=== PATIENT | male | born 1995 | race Caucasian/White ===

== ENCOUNTER 2023-11-11 10:29 | Inpatient (IN) | payer OTHER ==
[~2023-11-11] VITALS: Ht 177.8 cm; Wt 81.6 kg
[2023-11-11 10:44] VITALS: BP 143/89; PULSE 126; RESP 16; TEMP 101.2; O2SAT 98
[2023-11-11] MEDS: ACETAMINOPHEN EXTRA STRENGTH 500 MG TAB PO ONE (10:54)
[2023-11-11] MEDS ORDERED: PIPERACILLIN/TAZOBACTAM 3.375 GM VIAL IV ONE (11:22)
[2023-11-11] MEDS: PIPERACILLIN/TAZOBACTAM 3.375 GM in DEXT 5% MINI-BAG PLUS 50 ML IV ONE (11:30)
[2023-11-11] MEDS: NACL 0.9% 2,000 ML IV SCH (11:31)
[2023-11-11 11:39] LABS: HEMATOCRIT 40.3 % (36-52); HEMOGLOBIN 13.8 g/dL (12.0-18.0); MEAN CORPUSCULAR HEMOGLOBIN 29 pg (27-31); MEAN CORPUSCULAR HGB CONC 34 g/dL (33-37); MEAN CORPUSCULAR VOLUME 85.5 fL (80-94); PLATELET COUNT (AUTO) 268 K/uL (140-450); RED BLOOD CELL COUNT(AUTO) 4.71 MIL/uL (4.20-6.10)
[2023-11-11 11:52] LABS: WHITE BLOOD COUNT (AUTO) 25.9 K/uL (4.8-10.8)
[2023-11-11 12:08] LABS: INR 1.07 (0.8-1.2); PROTHROMBIN TIME 11.2 secs (10.8-13.4)
[2023-11-11 12:10] LABS: LACTIC ACID 1.7 mmol/L (0.4-2.0)
[2023-11-11 12:14] LABS: ANION GAP 10.4 (8-16); CALCIUM 8.7 mg/dL (8.5-10.1); CARBON DIOXIDE 29.6 mmol/L (21-32); CREATININE 0.7 mg/dL (0.6-1.3)
[2023-11-11 12:16] LABS: ALANINE AMINOTRANSFERASE 27 U/L (12-78); ALBUMIN 3.3 g/dL (3.4-5.0); ALKALINE PHOSPHATASE 77 U/L (50-136); ASPARTATE AMINOTRANSFERASE 24 U/L (15-37); BILIRUBIN,DIRECT 0.1 mg/dL (0.0-0.3); CREATINE KINASE, TOTAL 164 U/L (39-308); TOTAL BILIRUBIN 0.4 mg/dL (0.0-1.0); TOTAL PROTEIN, SERUM 8.2 g/dL (6.4-8.2)
[2023-11-11 12:18] LABS: BASOPHILS % (MANUAL) 0 % (0-2); BLASTS, MANUAL % 0 % (0-0); EOSINOPHILS % (MANUAL) 0 % (0-4); LYMPHOCYTES % (MANUAL) 3 % (20-46); METAMYELOCYTES % 0 % (0-0); MONOCYTES % (MANUAL) 6 % (5-12); MYELOCYTES % 0 % (0-0); OTHER CELLS,MANUAL % 0 (0-0); PLASMA CELLS 0; PLATELET ESTIMATE ADEQUATE; PROMYELOCYTES % 0 % (0-0); SMUDGE CELLS 0
[2023-11-11 12:35] LABS: APPEARANCE,URINE CLEAR (CLEAR); BILIRUBIN,URINE NEGATIVE (NEGATIVE); BLOOD, URINE NEGATIVE (NEGATIVE); COLOR,URINE YELLOW (YELLOW); LEUKOCYTE ESTERASE ,URINE NEGATIVE (NEGATIVE); NITRITE, URINE NEGATIVE (NEGATIVE); PROTEIN,URINE 1+ (NEGATIVE); UGLUCOSE NEGATIVE (NEGATIVE)
[2023-11-11 12:38] LABS: BACTERIA,URINE 0-2 /HPF (None Seen); MUCUS,URINE 1+ /LPF (None Seen); RBC,URINE 0-5 /HPF (0-5); SQUAMOUS EPITHELIAL CELL,UR 0-3 (FEW) /LPF (0-3 (FEW)); WBC,URINE 0 /HPF (0-5)
[2023-11-11] MEDS ORDERED: MAGNESIUM OXIDE 400 MG TAB PO PRN (14:00)
[2023-11-11] MEDS ORDERED: KCL 20 MEQ IN 100 mL PREMIX 200 ML IV PRN (14:00)
[2023-11-11] MEDS ORDERED: MORPHINE SULFATE 4 MG/ML SYR IVP PRN (14:00)
[2023-11-11] MEDS ORDERED: VANCOMYCIN PER PHARMACY MC PRN (14:00)
[2023-11-11] MEDS: NACL 0.9% 1,000 ML IV SCH (14:00)
[2023-11-11] MEDS ORDERED: ONDANSETRON 4 MG/2 ML VIAL IVP PRN (14:00)
[2023-11-11] MEDS ORDERED: HYDROcodone/APAP 5/325 MG 1 TAB TAB PO PRN (14:00)
[2023-11-11] MEDS ORDERED: POTASSIUM CHLORIDE 10 MEQ TABER PO PRN (14:00)
[2023-11-11] MEDS ORDERED: MAG SULF 2000 MG/WATER PREMIX 50 ML IV PRN (14:00)
[2023-11-11] MEDS ORDERED: ENOXAPARIN 40 MG/0.4 ML SYR SUBQ ONE (15:22)
[2023-11-11] MEDS ORDERED: cefTRIAXone 1,000 MG VIAL ONE (15:22)
[2023-11-11] MEDS: ENOXAPARIN 40 MG/0.4 ML SYR SUBQ SCH (15:38)
[2023-11-11] MEDS: VANCOMYCIN 1.25GM PREMIX 250 ML IV SCH (15:59)
[2023-11-11 16:25] LABS: FLU A ANTIGEN negative (NEGATIVE); FLU B ANTIGEN negative (NEGATIVE)
[2023-11-11] MEDS: ACETAMINOPHEN 325 MG TAB PO PRN (18:06)
[2023-11-11 19:07] VITALS: BP 118/70; PULSE 110; RESP 16; TEMP 99.5; O2SAT 98
== END 2023-11-11 19:50 | disposition left against medical advice (07) | DRG 344 ==
LOC: MED 10:29 → MMU 14:00 → MTU 18:11
PROVIDERS: ADMIT Hospitalist; ATTEND Hospitalist
DX: M86.8X6 Other osteomyelitis, lower leg (principal); E44.0 Moderate protein-calorie malnutrition; E87.1 Hypo-osmolality and hyponatremia; S81.801A Unspecified open wound, right lower leg, initial encounter; D72.829 Elevated white blood cell count, unspecified; R00.0 Tachycardia, unspecified; X58.XXXA Exposure to other specified factors, initial encounter; Z20.822 Contact with and (suspected) exposure to COVID-19; Z68.25 Body mass index [BMI] 25.0-25.9, adult
CPT/HCPCS: 36415; 71045; 73590; 80048; 80076; 81001; 82550; 83605; 83880; 84484; 85025; 85610; 85730; 87040; 93005; 96374; 99291; J0696; J1650; J2543; J3372; Q0092

== ENCOUNTER 2023-11-16 18:12 | Inpatient (IN) | payer OTHER ==
[~2023-11-16] VITALS: Ht 177.8 cm; Wt 81.6 kg
[2023-11-16 18:43] VITALS: BP 126/84; PULSE 111; RESP 20; TEMP 98; O2SAT 99
[2023-11-16 19:46] LABS: BASOPHILS # (AUTO) 0.1 K/uL (0.00-0.22); BASOPHILS % (AUTO) 0.5 % (0.0-2.0); EOSINOPHILS # (AUTO) 0.4 K/uL (0-0.4); EOSINOPHILS % (AUTO) 4.4 % (0.0-4.0); HEMATOCRIT 34.4 % (36-52); HEMOGLOBIN 11.6 g/dL (12.0-18.0); LYMPHOCYTES # (AUTO) 1.4 K/uL (2.0-11.5); LYMPHOCYTES % (AUTO) 14.2 % (20.5-51.1); MEAN CORPUSCULAR HEMOGLOBIN 29 pg (27-31); MEAN CORPUSCULAR HGB CONC 34 g/dL (33-37); MEAN CORPUSCULAR VOLUME 86.4 fL (80-94); MONOCYTES # (AUTO) 1.5 K/uL (0.8-1.0); MONOCYTES % (AUTO) 15.6 % (1.7-9.3); NEUTROPHILS # (AUTO) 6.4 K/uL (1.8-7.7); NEUTROPHILS % (AUTO) 65.3 % (42.2-75.2); PLATELET COUNT (AUTO) 378 K/uL (140-450); RED BLOOD CELL COUNT(AUTO) 3.99 MIL/uL (4.20-6.10); RED CELL DISTRIBUTION WIDTH 14.4 % (11.6-13.7); WHITE BLOOD COUNT (AUTO) 9.8 K/uL (4.8-10.8)
[2023-11-16 19:56] LABS: ANION GAP 5.1 (8-16); CALCIUM 8.7 mg/dL (8.5-10.1); CARBON DIOXIDE 34.5 mmol/L (21-32); CREATININE 0.7 mg/dL (0.6-1.3); POTASSIUM 3.6 mmol/L (3.5-5.1)
[2023-11-16] MEDS: NACL 0.9% 2,000 ML IV ONE (20:02)
[2023-11-16 20:05] LABS: LACTIC ACID 0.8 mmol/L (0.4-2.0)
[2023-11-16] MEDS ORDERED: cefTRIAXone 1,000 MG VIAL ONE (20:05)
[2023-11-16 23:40] LABS: APPEARANCE,URINE CLEAR (CLEAR); BILIRUBIN,URINE NEGATIVE (NEGATIVE); BLOOD, URINE NEGATIVE (NEGATIVE); COLOR,URINE YELLOW (YELLOW); LEUKOCYTE ESTERASE ,URINE TRACE (NEGATIVE); NITRITE, URINE NEGATIVE (NEGATIVE); PROTEIN,URINE NEGATIVE (NEGATIVE); UGLUCOSE NEGATIVE (NEGATIVE); UROBILINOGEN,URINE 0.2 EU/dL (0.2 - 1)
[2023-11-16 23:51] LABS: BACTERIA,URINE 10-30 (MOD) /HPF (None Seen); MUCUS,URINE 1+ /LPF (None Seen); RBC,URINE 0-5 /HPF (0-5); SQUAMOUS EPITHELIAL CELL,UR 0-3 (FEW) /LPF (0-3 (FEW))
[2023-11-17] MEDS ORDERED: ONDANSETRON 4 MG/2 ML VIAL IVP PRN (02:35)
[2023-11-17] MEDS ORDERED: ACETAMINOPHEN 325 MG TAB PO PRN ×2 (02:35→09:00)
[2023-11-17] MEDS ORDERED: VANCOMYCIN PER PHARMACY MC PRN (02:50)
[2023-11-17] MEDS ORDERED: VANCOMYCIN HCL 750 MG PDS IV ONE (03:47)
[2023-11-17] MEDS ORDERED: VANCOMYCIN 500 MG VIAL ONE (03:48)
[2023-11-17] MEDS: VANCOMYCIN 1.25GM PREMIX 250 ML IV SCH ×2 (04:03→12:24)
[2023-11-17] MEDS ORDERED: IBUPROFEN 400 MG TAB PO PRN (09:00)
[2023-11-17] MEDS ORDERED: HYDROcodone/APAP 5/325 MG 1 TAB TAB PO PRN (09:00)
[2023-11-17] MEDS: ENOXAPARIN 40 MG/0.4 ML SYR SUBQ SCH (09:33)
[2023-11-17 18:00] VITALS: PULSE 92
[2023-11-17 20:00] VITALS: BP 130/81; PULSE 77; RESP 18; TEMP 98.2; O2SAT 100
[2023-11-18] VITALS (9 sets, daily range): BP systolic 122–136; BP diastolic 69–77; PULSE 75–90; RESP 18–20; TEMP 97.2–98.2; O2SAT 98–100
[2023-11-18 07:10] LABS: BASOPHILS % (AUTO) 0.5 % (0.0-2.0); EOSINOPHILS # (AUTO) 0.6 K/uL (0-0.4); EOSINOPHILS % (AUTO) 5.8 % (0.0-4.0); HEMOGLOBIN 11.5 g/dL (12.0-18.0); LYMPHOCYTES # (AUTO) 1.3 K/uL (2.0-11.5); LYMPHOCYTES % (AUTO) 12.8 % (20.5-51.1); MEAN CORPUSCULAR HEMOGLOBIN 29 pg (27-31); MEAN CORPUSCULAR HGB CONC 33 g/dL (33-37); MEAN CORPUSCULAR VOLUME 86.5 fL (80-94); MONOCYTES # (AUTO) 1.1 K/uL (0.8-1.0); MONOCYTES % (AUTO) 11.4 % (1.7-9.3); NEUTROPHILS # (AUTO) 6.8 K/uL (1.8-7.7); NEUTROPHILS % (AUTO) 69.5 % (42.2-75.2); PLATELET COUNT (AUTO) 374 K/uL (140-450); RED BLOOD CELL COUNT(AUTO) 4.05 MIL/uL (4.20-6.10); RED CELL DISTRIBUTION WIDTH 14.6 % (11.6-13.7); WHITE BLOOD COUNT (AUTO) 9.8 K/uL (4.8-10.8)
[2023-11-18 07:37] LABS: ALBUMIN 2.1 g/dL (3.4-5.0); ANION GAP 8.7 (8-16); CALCIUM 8.4 mg/dL (8.5-10.1); CARBON DIOXIDE 31.1 mmol/L (21-32); CREATININE 0.6 mg/dL (0.6-1.3); MAGNESIUM 1.8 mg/dL (1.8-2.4); POTASSIUM 3.8 mmol/L (3.5-5.1); TOTAL BILIRUBIN 0.1 mg/dL (0.0-1.0); TOTAL PROTEIN, SERUM 7.3 g/dL (6.4-8.2)
[2023-11-19 04:00] VITALS: BP 130/76; PULSE 74; RESP 18; TEMP 97.6; O2SAT 96
[2023-11-19] MEDS: MORPHINE SULFATE 2 MG/ML SYR IVP PRN (04:11)
[2023-11-19 08:00] VITALS: PULSE 70; RESP 20; O2SAT 98
[2023-11-19 08:03] VITALS: TEMP 97.2
[2023-11-19 10:11] VITALS: BP 115/56; PULSE 70; RESP 20; TEMP 97; O2SAT 96
[2023-11-19] MEDS: COMPOSITE DRESSING TP SCH (13:49)
[2023-11-19 16:36] VITALS: BP 142/87; PULSE 105; RESP 20; TEMP 98.2; O2SAT 99
[2023-11-19 20:00] VITALS: TEMP 97.2
[2023-11-20 04:00] VITALS: BP 124/67; PULSE 74; RESP 16; TEMP 97.4; O2SAT 96
[2023-11-20 08:00] VITALS: BP 127/73; PULSE 69; PULSE 81; RESP 19; TEMP 97.3; O2SAT 100; O2SAT 99
[2023-11-20 08:50] VITALS: TEMP 98.3
[2023-11-20 16:00] VITALS: BP 119/63; PULSE 65; RESP 19; TEMP 98.6; O2SAT 100
[2023-11-20] MEDS ORDERED: CEPH-588 PO (16:49)
[2023-11-20] MEDS ORDERED: SULF-59 PO (16:49)
[2023-11-20] MEDS ORDERED: ACET-9525 PO (16:49)
[2023-11-20 18:27] VITALS: BP 124/80; PULSE 68; RESP 20; TEMP 98.7
== END 2023-11-20 19:35 | disposition home or self-care (01) | DRG 342 ==
LOC: MED 18:12 → MTU 11-17 02:39 → OBSVTOIN 11-19 15:52
PROVIDERS: ADMIT Hospitalist; ATTEND Hospitalist
PROC: 05HY33Z Insertion of Infusion Device into Upper Vein, Percutaneous Approach (ICD-10-PCS; principal; 2023-11-19)
DX: S82.291A Other fracture of shaft of right tibia, initial encounter for closed fracture (principal); L03.115 Cellulitis of right lower limb; S81.811A Laceration without foreign body, right lower leg, initial encounter; X58.XXXA Exposure to other specified factors, initial encounter; Y93.89 Activity, other specified; Y92.89 Other specified places as the place of occurrence of the external cause; Y99.8 Other external cause status
CPT/HCPCS: G0378 ×46; 36415; 71045; 73590; 73701; 80048; 80053; 80202; 81001; 83605; 83735; 85025; 87040; 87086; 93971; J0696; J1650; J2270; J3370; J3372; J7060; Q0092; Q9967